=== PATIENT | male | born 1950 | race Hispanic/Latino ===

== ENCOUNTER 2017-04-26 18:46 | Emergency (ER) | payer MEDICARE ==
[~2017-04-26 18:46] MED LIST: ENAL5TAB PO; METO-408 PO
[2017-04-26 19:40] LABS: BASOPHILS % (AUTO) 0.6 % (0.0-5.0); EOSINOPHILS % (AUTO) 0.6 % (0.0-8.0); HEMATOCRIT 44.5 % (42-54); LYMPHOCYTES % (AUTO) 13.7 % (21.0-51.0); MEAN CORPUSCULAR HEMOGLOBIN 29.2 pg (27.0-33.0); MEAN CORPUSCULAR HGB CONC 33.9 g/dL (32.0-36.0); MEAN CORPUSCULAR VOLUME 86.3 fL (79-99); MONOCYTES % (AUTO) 4.7 % (3.0-13.0); NEUTROPHILS % (AUTO) 80.4 % (40.0-77.0); PLATELET COUNT (AUTO) 180 K/uL (130-400); RED BLOOD CELL COUNT(AUTO) 5.16 MIL/uL (4.50-6.20); RED CELL DISTRIBUTION WIDTH 13.7 % (11.0-15.5); WHITE BLOOD COUNT (AUTO) 9.6 K/uL (4.8-10.8)
[2017-04-26 19:47] LABS: CREATININE 1.1 mg/dL (0.5-1.5); POTASSIUM 3.6 mmol/L (3.5-5.1)
[2017-04-26 19:51] LABS: BILIRUBIN,TOTAL 0.9 mg/dL (0.2-1.0)
[2017-04-26] MEDS ORDERED: ONDANSETRON HCL 4 MG/2 ML VIAL ONE (19:53)
[2017-04-26] MEDS ORDERED: MORPHINE SULFATE 2 MG/ML 1ML SYG ONE (19:53)
[2017-04-26 20:15] LABS: APPEARANCE,URINE Turbid (CLEAR); BILIRUBIN,URINE Negative (NEGATIVE); COLOR,URINE Orange (YELLOW); GLUCOSE, URINE (UA) TRACE mg/dL (NEGATIVE); KETONES,URINE 15 mg/dL (NEGATIVE); LEUKOCYTE ESTERASE ,URINE Small (NEGATIVE); NITRATE,URINE Negative (NEGATIVE); OCCULT BLOOD,URINE Large (NEGATIVE); PH,URINE 5.5 (5.0-8.0); PROTEIN,URINE POS 2+ (NEGATIVE)
[2017-04-26 20:22] LABS: BACTERIA,URINE Few /HPF (None Seen); MUCUS,URINE Moderate LPF (None Seen); RBC,URINE Full Field /HPF (0-1); SQUAMOUS EPITHELIAL CELL,UR 0-2 /LPF (0-2)
[2017-04-26] MEDS ORDERED: KETOROLAC TROMETHAMINE 30MG/ML ONE (20:42)
[2017-04-26] MEDS ORDERED: SODIUM CHLORIDE 0.9% 1000ML 1,000 ML IV ONE (20:42)
== END 2017-04-26 22:26 | disposition home or self-care (01) ==
LOC: EDH 18:46
DX: N23 Unspecified renal colic (principal); I10 Essential (primary) hypertension; I25.10 Atherosclerotic heart disease of native coronary artery without angina pectoris; Z95.1 Presence of aortocoronary bypass graft; Z98.890 Other specified postprocedural states; Z87.891 Personal history of nicotine dependence
CPT/HCPCS: 36415; 74176; 80053; 81001; 85025; 96361; 96374; 96375; 99285; J1885; J2405; J7030

== ENCOUNTER → 2017-05-13 | Outpatient (CLI) | payer MEDICARE | END | disposition home or self-care (01) | LOC: RAH 07:49 | PROVIDERS: ATTEND Internal Medicine | DX: N20.0 Calculus of kidney (principal); N28.1 Cyst of kidney, acquired; I70.0 Atherosclerosis of aorta; R16.0 Hepatomegaly, not elsewhere classified; Z90.49 Acquired absence of other specified parts of digestive tract | CPT/HCPCS: 76700 ==

== ENCOUNTER 2018-01-05 13:52 | Emergency (ER) | payer MEDICARE ==
[2018-01-05] MEDS ORDERED: OCTYL 2-CYANOACRYLATE 1 EACH TP ONE (14:12)
[2018-01-05] MEDS ORDERED: LIDOCAINE HCL MPF 1% 5ML VIAL ONE (14:13)
[2018-01-05] MEDS ORDERED: TETANUS/DIPHTHERIA TOXOID [ADULT] 0.5 ML VIAL IM ONE (14:56)
== END 2018-01-05 15:15 | disposition home or self-care (01) ==
LOC: EDH 13:52
DX: S01.81XA Laceration without foreign body of other part of head, initial encounter (principal); I10 Essential (primary) hypertension; I25.10 Atherosclerotic heart disease of native coronary artery without angina pectoris; Z90.49 Acquired absence of other specified parts of digestive tract; Z72.0 Tobacco use; W18.39XA Other fall on same level, initial encounter; Y93.89 Activity, other specified; Y92.89 Other specified places as the place of occurrence of the external cause; Y99.8 Other external cause status
CPT/HCPCS: 12053; 90471; 90714; 99285; J3490

== ENCOUNTER 2018-02-24 23:59 | Inpatient (IN) | payer MEDICARE ==
[~2018-02-24] VITALS: Ht 165.1 cm; Wt 73.8 kg
[2018-02-25 00:52] LABS: BASOPHILS % (AUTO) 0.4 % (0.0-5.0); EOSINOPHILS % (AUTO) 0.6 % (0.0-8.0); HEMATOCRIT 43.4 % (42-54); LYMPHOCYTES % (AUTO) 12.8 % (21.0-51.0); MEAN CORPUSCULAR HEMOGLOBIN 29.4 pg (27.0-33.0); MEAN CORPUSCULAR HGB CONC 33.8 g/dL (32.0-36.0); MONOCYTES % (AUTO) 6.8 % (3.0-13.0); NEUTROPHILS % (AUTO) 79.4 % (40.0-77.0); PLATELET COUNT (AUTO) 142 K/uL (130-400); RED BLOOD CELL COUNT(AUTO) 4.99 MIL/uL (4.50-6.20); RED CELL DISTRIBUTION WIDTH 13.9 % (11.0-15.5)
[2018-02-25 01:00] LABS: APPEARANCE,URINE Clear (CLEAR); BILIRUBIN,URINE Negative (NEGATIVE); COLOR,URINE Yellow (YELLOW); GLUCOSE, URINE (UA) Negative (NEGATIVE); KETONES,URINE Trace mg/dL (NEGATIVE); LEUKOCYTE ESTERASE ,URINE Negative (NEGATIVE); NITRATE,URINE Negative (NEGATIVE); OCCULT BLOOD,URINE Negative (NEGATIVE); PH,URINE 6.5 (5.0-8.0); PROTEIN,URINE Negative (NEGATIVE)
[2018-02-25 01:02] LABS: CREATININE 1.4 mg/dL (0.5-1.5); POTASSIUM 3.6 mmol/L (3.5-5.1)
[2018-02-25 01:06] LABS: ALBUMIN 3.9 g/dL (3.5-5.0); TOTAL PROTEIN, SERUM 7.4 g/dL (6.0-8.3)
[2018-02-25] MEDS ORDERED: MORPHINE SULFATE 4 MG/1ML SYG ONE (01:23)
[2018-02-25] MEDS ORDERED: ONDANSETRON HCL 4 MG/2 ML VIAL ONE (01:23)
[2018-02-25] MEDS ORDERED: SODIUM CHLORIDE 0.9% 500ML 500 ML IV ONE (01:24)
[2018-02-25] MEDS ORDERED: KETOROLAC TROMETHAMINE 30MG/ML ONE (02:09)
[2018-02-25] MEDS ORDERED: ONDANSETRON HCL MDV 20ML 2 MG/ML VIAL IVP PRN (03:45)
[2018-02-25] MEDS ORDERED: MORPHINE SULFATE 4 MG/1ML SYG IVP PRN (03:45)
[2018-02-25] MEDS ORDERED: DICL50TA9 PO (07:33)
[2018-02-25] MEDS ORDERED: ROSU20TA30 PO (07:33)
[2018-02-25] MEDS ORDERED: METO25TA6 PO (07:33)
[2018-02-25] MEDS ORDERED: MELO-106 PO (07:33)
[2018-02-25] MEDS ORDERED: BACL5TAB PO (07:33)
[2018-02-25] MEDS ORDERED: 1/2 NORMAL SALINE 1,000 ML IV ONE (07:49)
[2018-02-25 11:56] VITALS: BP 131/75
[2018-02-25 16:00] VITALS: BP 139/71
[2018-02-25] MEDS ORDERED: BACLOFEN 10 MG TABLET PO PRN (16:30)
[2018-02-25 19:00] VITALS: BP 142/81
[2018-02-25] MEDS ORDERED: MAGNESIUM CITRATE 296 ML SOLUTION PO SCH (19:30)
[2018-02-25] MEDS: ATORVASTATIN CALCIUM 40 MG TABLET PO SCH (20:23)
[2018-02-25] MEDS: METOPROLOL TARTRATE 25 MG TAB PO SCH (20:23)
[2018-02-25] MEDS: 1/2 NORMAL SALINE 1,000 ML IV SCH ×2 (20:24→23:37)
[2018-02-25] MEDS: DICLOFENAC SODIUM 50 MG PO SCH (20:25)
[2018-02-26] VITALS (14 sets, daily range): BP systolic 93–147; BP diastolic 54–80
[2018-02-26] MEDS ORDERED: IOHEXOL-350 75 ML VIAL IV ONE (08:27)
[2018-02-26] MEDS: DICLOFENAC SODIUM 50 MG PO SCH ×2 (09:00→21:00)
[2018-02-26] MEDS: MELOXICAM 7.5 MG TABLET PO SCH (10:04)
[2018-02-26] MEDS: METOPROLOL TARTRATE 25 MG TAB PO SCH ×2 (10:04→21:57)
[2018-02-26] MEDS: ATORVASTATIN CALCIUM 40 MG TABLET PO SCH (21:57)
[2018-02-27] MEDS: 1/2 NORMAL SALINE 1,000 ML IV SCH ×2 (00:23→15:45)
[2018-02-27 04:00] VITALS: BP 133/81
[2018-02-27 08:33] VITALS: BP 150/77
[2018-02-27] MEDS: DICLOFENAC SODIUM 50 MG PO SCH (09:00)
[2018-02-27] MEDS: METOPROLOL TARTRATE 25 MG TAB PO SCH (09:42)
[2018-02-27] MEDS: MELOXICAM 7.5 MG TABLET PO SCH (09:42)
[2018-02-27 13:20] VITALS: BP 146/77
[2018-02-27 17:48] VITALS: BP 153/81
[2018-03-03] MEDS ORDERED: DICL50TA9 PO (14:08)
[2018-03-03] MEDS ORDERED: LISI-617 PO (14:08)
[2018-03-03] MEDS ORDERED: TAMS0.4C32 PO (14:08)
[2018-03-03] MEDS ORDERED: MELO-108 PO (14:08)
[2018-03-03] MEDS ORDERED: BACL10TA PO (14:08)
== END 2018-02-27 19:45 | disposition home or self-care (01) | DRG 694 ==
LOC: EDH 23:59 → UNDOADMOB 02-25 02:16 → OBSVTOIN 02-25 02:16 → EDHIP 02-25 02:16 → 3DH 02-25 11:35 → EDHIP 02-25 11:35 → OBSVTOIN 02-26 10:14 → INTOOBSV 02-26 10:14
PROVIDERS: ADMIT Internal Medicine; ATTEND Internal Medicine
DX: N13.2 Hydronephrosis with renal and ureteral calculous obstruction (principal); I10 Essential (primary) hypertension; I25.10 Atherosclerotic heart disease of native coronary artery without angina pectoris; Z95.1 Presence of aortocoronary bypass graft; Z90.49 Acquired absence of other specified parts of digestive tract
CPT/HCPCS: 36415; 74176; 74400; 80053; 81003; 84153; 85025; J1885; J2270; J2405; J7040; Q9967

== ENCOUNTER 2018-03-18 05:30 | Observation (INO) | payer MEDICARE ==
[2018-03-17] MEDS: CEFAZOLIN SODIUM 1 GM VIAL IVP SCH (05:30)
[2018-03-17 10:15] LABS: APPEARANCE,URINE Clear (CLEAR); BILIRUBIN,URINE Negative (NEGATIVE); COLOR,URINE Yellow (YELLOW); GLUCOSE, URINE (UA) Negative (NEGATIVE); KETONES,URINE Negative (NEGATIVE); LEUKOCYTE ESTERASE ,URINE Moderate (NEGATIVE); NITRATE,URINE Negative (NEGATIVE); OCCULT BLOOD,URINE Large (NEGATIVE); PH,URINE 6.5 (5.0-8.0); PROTEIN,URINE POS 1+ (NEGATIVE)
[2018-03-17 10:16] LABS: HEMATOCRIT 44.2 % (42-54); MEAN CORPUSCULAR HEMOGLOBIN 28.5 pg (27.0-33.0); MEAN CORPUSCULAR VOLUME 86.3 fL (79-99); PLATELET COUNT (AUTO) 148 K/uL (130-400); RED BLOOD CELL COUNT(AUTO) 5.12 MIL/uL (4.50-6.20); RED CELL DISTRIBUTION WIDTH 13.9 % (11.0-15.5); WHITE BLOOD COUNT (AUTO) 6.4 K/uL (4.8-10.8)
[2018-03-17 10:24] LABS: BACTERIA,URINE Rare /HPF (None Seen); MUCUS,URINE Few LPF (None Seen); RBC,URINE >100 /HPF (0-1); SQUAMOUS EPITHELIAL CELL,UR Few /HPF (0-2)
[2018-03-17 10:28] LABS: POTASSIUM 4.4 mmol/L (3.5-5.1)
[2018-03-17 10:30] VITALS: BP 111/67
[2018-03-17 10:37] LABS: INR 0.98 (0.85-1.15); PARTIAL THROMBOPLASTIN TIME 29.9 SEC (26.3-35.5); PROTHROMBIN TIME 10.3 SEC (9.6-11.6)
[2018-03-17] MEDS: LACTATED RINGERS 1000ML 1,000 ML IV SCH (21:15)
[2018-03-18] VITALS (26 sets, daily range): BP systolic 93–157; BP diastolic 53–90
[~2018-03-18] VITALS: Ht 165.1 cm; Wt 73.0 kg
[~2018-03-18 05:30] MED LIST changes: -ENAL5TAB PO; +LISI-617 PO; -METO-408 PO; +METOPROLOL PO; +ROSU20TA30 PO; +TAMS0.4C32 PO
[2018-03-18] MEDS: LACTATED RINGERS 1000ML 1,000 ML IV SCH ×3 (06:09→08:20)
[2018-03-18] MEDS ORDERED: IOHEXOL-350 50ML VIAL IV ONE (06:47)
[2018-03-18] MEDS ORDERED: LIDOCAINE PF 2% 5ML ABBOJECT ONE ×2 (06:51→07:21)
[2018-03-18] MEDS ORDERED: DEXAMETHASONE SOD PHOSPHATE 10MG/ML 1ML VIAL ONE (06:51)
[2018-03-18] MEDS ORDERED: GLYCOPYRROLATE 1 MG/5 ML SYRINGE ONE (06:52)
[2018-03-18] MEDS ORDERED: MIDAZOLAM HCL 1 MG/ML 2ML VIAL ONE (06:52)
[2018-03-18] MEDS ORDERED: PROPOFOL 10 MG/ML 20ML VIAL IV ONE (06:52)
[2018-03-18] MEDS ORDERED: FENTANYL CITRATE PF 50 MCG/1 ML 2ML VIAL ONE (06:52)
[2018-03-18] MEDS ORDERED: NEOSTIGMINE 5MG/5ML SYR IV ONE (06:52)
[2018-03-18] MEDS ORDERED: ONDANSETRON HCL 4 MG/2 ML VIAL ONE (06:52)
[2018-03-18] MEDS ORDERED: ROCURONIUM 10MG/1ML SYR 10 MG/ML ML ONE (06:52)
[2018-03-18] MEDS: CEFAZOLIN SODIUM 1 GM VIAL IVP SCH ×3 (07:00→21:56)
[2018-03-18] MEDS ORDERED: EPHEDRINE SULFATE 50 MG/ML AMPULE ONE (07:21)
[2018-03-18] MEDS ORDERED: SODIUM CHLORIDE 0.9% 10 ML VIAL ONE (07:21)
[2018-03-18] MEDS ORDERED: ESMOLOL HCL 10 MG/ML 10 ML VIAL ONE (08:40)
[2018-03-18] MEDS ORDERED: ACETAMINOPHEN 325 MG TAB PO PRN (10:00)
[2018-03-18] MEDS ORDERED: ONDANSETRON HCL 4 MG/2 ML VIAL IVP PRN (10:00)
[2018-03-18] MEDS ORDERED: ACETAMINOPHEN-CODEINE 300/30MG TAB PO PRN (10:00)
[2018-03-18] MEDS ORDERED: MEPERIDINE-PF 75 MG/ML SYG IM PRN (10:00)
[2018-03-18] MEDS: DEXTROSE 5 %-0.45 % NACL 1,000 ML IV SCH (15:07)
[2018-03-18] MEDS: METOPROLOL TARTRATE 25 MG TAB PO SCH (20:51)
[2018-03-19] MEDS: DEXTROSE 5 %-0.45 % NACL 1,000 ML IV SCH ×2 (02:08→10:07)
[2018-03-19 03:49] VITALS: BP 107/56
[2018-03-19 04:31] LABS: BASOPHILS % (AUTO) 0.1 % (0.0-5.0); HEMATOCRIT 38.5 % (42-54); LYMPHOCYTES % (AUTO) 9.1 % (21.0-51.0); MEAN CORPUSCULAR HEMOGLOBIN 28.2 pg (27.0-33.0); MEAN CORPUSCULAR HGB CONC 32.8 g/dL (32.0-36.0); MEAN CORPUSCULAR VOLUME 86.2 fL (79-99); MONOCYTES % (AUTO) 4.8 % (3.0-13.0); PLATELET COUNT (AUTO) 137 K/uL (130-400); RED BLOOD CELL COUNT(AUTO) 4.46 MIL/uL (4.50-6.20); RED CELL DISTRIBUTION WIDTH 13.8 % (11.0-15.5); WHITE BLOOD COUNT (AUTO) 14.8 K/uL (4.8-10.8)
[2018-03-19 04:39] LABS: CREATININE 1.1 mg/dL (0.5-1.5)
[2018-03-19] MEDS: CEFAZOLIN SODIUM 1 GM VIAL IVP SCH ×3 (05:57→22:45)
[2018-03-19 07:30] VITALS: BP_SYST 114; BP_SYST 156; BP_DIAS 61; BP_DIAS 65
[2018-03-19] MEDS: LACTATED RINGERS 1000ML 1,000 ML IV SCH ×2 (10:06→23:15)
[2018-03-19] MEDS: METOPROLOL TARTRATE 25 MG TAB PO SCH ×2 (10:11→20:54)
[2018-03-19] MEDS: LISINOPRIL 5 MG TABLET PO SCH (10:11)
[2018-03-19] MEDS: TAMSULOSIN HCL 0.4 MG CAP.ER.24H PO SCH (10:11)
[2018-03-19 11:00] VITALS: BP 111/60
[2018-03-19] MEDS: ZOSYN 3.375GM+NS 50ML 50 ML IV SCH ×2 (14:26→22:45)
[2018-03-19 16:00] VITALS: BP 109/57
[2018-03-19] MEDS ORDERED: Rosuvastatin Calcium 20 MG PO SCH (21:00)
[2018-03-19 21:11] VITALS: BP 116/60
[2018-03-20 00:24] VITALS: BP 124/68
[2018-03-20] MEDS: DEXTROSE 5 %-0.45 % NACL 1,000 ML IV SCH (02:00)
[2018-03-20 04:10] VITALS: BP 116/55
[2018-03-20 04:48] LABS: HEMATOCRIT 38.3 % (42-54); MEAN CORPUSCULAR HEMOGLOBIN 29.6 pg (27.0-33.0); MEAN CORPUSCULAR HGB CONC 34.2 g/dL (32.0-36.0); MEAN CORPUSCULAR VOLUME 86.5 fL (79-99); NUCLEATED RED BLOOD CELLS 0.1 % (0.0-0.19); PLATELET COUNT (AUTO) 128 K/uL (130-400); RED BLOOD CELL COUNT(AUTO) 4.43 MIL/uL (4.50-6.20); RED CELL DISTRIBUTION WIDTH 13.8 % (11.0-15.5); WHITE BLOOD COUNT (AUTO) 8.4 K/uL (4.8-10.8)
[2018-03-20 05:08] LABS: BAND NEUTROPHILS % (MANUAL) 1 % (0-2); LYMPHOCYTES % (MANUAL) 29 % (22-44); MAN.DIFF COMMENT-IMPRESSION MANUAL DIFFERENTIAL; MONOCYTES % (MANUAL) 7 % (2-9); SEGMENTED NEUTROPHILS % 63 % (40-70)
[2018-03-20 05:10] LABS: PLATELET MORPHOLOGY COMMENT ADEQUATE
[2018-03-20] MEDS: CEFAZOLIN SODIUM 1 GM VIAL IVP SCH (06:38)
[2018-03-20] MEDS: ZOSYN 3.375GM+NS 50ML 50 ML IV SCH (06:38)
[2018-03-20 08:00] VITALS: BP 132/73
[2018-03-20] MEDS: LACTATED RINGERS 1000ML 1,000 ML IV SCH (09:15)
[2018-03-20] MEDS: LISINOPRIL 5 MG TABLET PO SCH (10:42)
[2018-03-20] MEDS: TAMSULOSIN HCL 0.4 MG CAP.ER.24H PO SCH (10:42)
[2018-03-20] MEDS: METOPROLOL TARTRATE 25 MG TAB PO SCH (10:43)
[2018-03-20 11:00] VITALS: BP 139/71
== END 2018-03-20 11:30 | disposition home or self-care (01) ==
LOC: DAH 05:30 → DAHIP 05:31 → DAH 05:31 → 4CH 09:32
PROVIDERS: ADMIT Urology; ATTEND Urology
DX: N20.2 Calculus of kidney with calculus of ureter (principal); D72.829 Elevated white blood cell count, unspecified; E78.5 Hyperlipidemia, unspecified; I25.10 Atherosclerotic heart disease of native coronary artery without angina pectoris; I10 Essential (primary) hypertension; N40.0 Benign prostatic hyperplasia without lower urinary tract symptoms; F41.9 Anxiety disorder, unspecified; Z96.0 Presence of urogenital implants; Z79.01 Long term (current) use of anticoagulants
CPT/HCPCS: 36415 ×3; 52356; 71046; 74420; 80048 ×2; 81001; 82360; 85025 ×2; 85027; 85610; 85730; 87088; 88300; 93005; 96365; 96366 ×2; 96375; 96376 ×3; A4218 ×6; A4344; A4358; A4600; A4649 ×2; A4930; C1751; C1758 ×2; C1769 ×2; C1894; C2617; G0378 ×54; J0690 ×7; J1100; J2001 ×2; J2250; J2405; J2543 ×3; J2704; J2710; J3010; J3490 ×3; J7042 ×2; J7120 ×2; Q9967

== ENCOUNTER → 2019-08-04 | Outpatient (CLI) | payer MEDICARE ==
[~2019-08-04] MED LIST changes: -ROSU20TA30 PO; +ROSU20TA31 PO
== END | disposition home or self-care (01) ==
LOC: RAH 12:01
PROVIDERS: ATTEND Internal Medicine
DX: N13.2 Hydronephrosis with renal and ureteral calculous obstruction (principal); K59.00 Constipation, unspecified; K42.9 Umbilical hernia without obstruction or gangrene; K57.30 Diverticulosis of large intestine without perforation or abscess without bleeding; Z90.49 Acquired absence of other specified parts of digestive tract
CPT/HCPCS: 74176

== ENCOUNTER → 2019-10-19 | Outpatient (CLI) | payer MEDICARE | END | disposition home or self-care (01) | LOC: SHCH 08:19 | PROVIDERS: ATTEND Internal Medicine Cardiovascular Disease | DX: I25.10 Atherosclerotic heart disease of native coronary artery without angina pectoris (principal); I10 Essential (primary) hypertension | CPT/HCPCS: 93306; 93356 ==

== ENCOUNTER → 2021-06-26 | Outpatient (CLI) | payer MEDICARE ==
[~2021-06-26] VITALS: Ht 165.1 cm; Wt 72.1 kg
[~2021-06-26] MED LIST changes: -LISI-617 PO; +LISI5TAB21 PO; +REGADENOSON 0.4 MG/5 ML PF SYG IVP SCH
== END | disposition home or self-care (01) ==
LOC: SHCH 07:32
PROVIDERS: ATTEND Internal Medicine Cardiovascular Disease
DX: I25.5 Ischemic cardiomyopathy (principal); E78.5 Hyperlipidemia, unspecified; E11.9 Type 2 diabetes mellitus without complications; I10 Essential (primary) hypertension; R94.39 Abnormal result of other cardiovascular function study; Z72.0 Tobacco use; Z95.1 Presence of aortocoronary bypass graft
CPT/HCPCS: 78452; 93017; 96374; A9500 ×2; J2785

== ENCOUNTER 2021-07-28 07:18 | Day surgery (SDC) | payer MEDICARE ==
[2021-07-26 11:28] LABS: APPEARANCE,URINE Clear (CLEAR); BILIRUBIN,URINE Negative (NEGATIVE); COLOR,URINE Yellow (YELLOW); GLUCOSE, URINE (UA) TRACE mg/dL (NEGATIVE); KETONES,URINE Negative (NEGATIVE); LEUKOCYTE ESTERASE ,URINE Negative (NEGATIVE); NITRATE,URINE Negative (NEGATIVE); OCCULT BLOOD,URINE Negative (NEGATIVE); PROTEIN,URINE Negative (NEGATIVE)
[2021-07-26 11:53] LABS: BASOPHILS % (AUTO) 0.7 % (0.0-5.0); EOSINOPHILS % (AUTO) 2.4 % (0.0-8.0); HEMATOCRIT 44.6 % (42-54); LYMPHOCYTES % (AUTO) 26.3 % (21.0-51.0); MEAN CORPUSCULAR HEMOGLOBIN 29.6 pg (27.0-33.0); MEAN CORPUSCULAR HGB CONC 33.4 g/dL (32.0-36.0); MEAN CORPUSCULAR VOLUME 88.5 fL (79-99); MONOCYTES % (AUTO) 6.6 % (3.0-13.0); NEUTROPHILS % (AUTO) 63.6 % (40.0-77.0); PLATELET COUNT (AUTO) 129 K/uL (130-400); RED BLOOD CELL COUNT(AUTO) 5.04 MIL/uL (4.50-6.20); RED CELL DISTRIBUTION WIDTH 13.7 % (11.0-15.5); WHITE BLOOD COUNT (AUTO) 5.4 K/uL (4.8-10.8)
[2021-07-26 12:01] LABS: CREATININE 0.9 mg/dL (0.5-1.5); POTASSIUM 4.2 mmol/L (3.5-5.1)
[2021-07-26 12:09] LABS: BACTERIA,URINE Rare /HPF (None Seen); RBC,URINE 0-1 /HPF (0-1); SQUAMOUS EPITHELIAL CELL,UR Few /HPF (0-2); WBC,URINE 0-1 /HPF (0-1)
[2021-07-26 12:11] LABS: B-TYPE NATRIURETIC PEPTIDE 26 pg/mL (0-100); INR 1.04 (0.85-1.15); PROTHROMBIN TIME 11.3 SEC (9.6-11.6)
[2021-07-26 12:12] LABS: PARTIAL THROMBOPLASTIN TIME 28.8 SEC (26.3-35.5)
[2021-07-27 09:45] VITALS: BP 137/66
[~2021-07-28] VITALS: Ht 160 cm; Wt 72.8 kg
[2021-07-28] VITALS (8 sets, daily range): BP systolic 124–141; BP diastolic 63–76
[~2021-07-28 07:18] MED LIST changes: +0.9% NACL 500ML IV.SOLN 500 ML IV SCH; +CLOP75TA32 PO; +FENTANYL CITRATE PF 50 MCG/1 ML 2ML VIAL ONE; +GLIM4TAB36 PO; +IOHEXOL 350 MG/ML 100ML INFUS..BTL IV ONE; +IOHEXOL-350 50ML VIAL IV ONE; +LIDOCAINE HCL 400MG/20ML VIAL ONE; +METO-408 PO; -METOPROLOL PO; +MIDAZOLAM HCL 1 MG/ML 2ML VIAL ONE; +NITROGLYCERIN 50MG VIAL ONE; -REGADENOSON 0.4 MG/5 ML PF SYG IVP SCH
[2021-07-28] MEDS ORDERED: 0.9%NACL 1000ML 1,000 ML IV ONE (08:21)
[2021-07-28] MEDS ORDERED: AEC81 PO (08:36)
[2021-07-28] MEDS ORDERED: FENTANYL CITRATE PF 50 MCG/1 ML 2ML VIAL ONE (09:00)
[2021-07-28] MEDS ORDERED: MIDAZOLAM HCL 1 MG/ML 2ML VIAL ONE (09:00)
[2021-07-28] MEDS: 0.9%NACL 1000ML 1,000 ML IV SCH ×2 (10:45→14:25)
== END 2021-07-28 14:26 | disposition home or self-care (01) ==
LOC: DAH 07:18
PROVIDERS: ATTEND Internal Medicine Cardiovascular Disease
DX: I25.118 Atherosclerotic heart disease of native coronary artery with other forms of angina pectoris (principal); I25.5 Ischemic cardiomyopathy; I25.718 Atherosclerosis of autologous vein coronary artery bypass graft(s) with other forms of angina pectoris; I11.0 Hypertensive heart disease with heart failure; I50.22 Chronic systolic (congestive) heart failure; E11.9 Type 2 diabetes mellitus without complications; E78.2 Mixed hyperlipidemia; Z79.82 Long term (current) use of aspirin; Z79.84 Long term (current) use of oral hypoglycemic drugs; Z79.899 Other long term (current) drug therapy; Z98.890 Other specified postprocedural states; Z79.01 Long term (current) use of anticoagulants
CPT/HCPCS: 36415; 71045; 80048; 81001; 83880; 85025; 85610; 85730; 93005; 93459; A4215; A4216; A4221; A4222; A4223 ×3; A4606; A4663; C1760; C1894 ×2; J1644; J2250; J3010; J3490 ×2; J7030 ×2; Q9965 ×2; Q9967 ×2; 99156; 99157

== ENCOUNTER → 2021-10-02 | Outpatient (CLI) | payer MEDICARE ==
[~2021-10-02] MED LIST changes: -0.9% NACL 500ML IV.SOLN 500 ML IV SCH; +AEC81 PO; -FENTANYL CITRATE PF 50 MCG/1 ML 2ML VIAL ONE; -IOHEXOL 350 MG/ML 100ML INFUS..BTL IV ONE; -IOHEXOL-350 50ML VIAL IV ONE; -LIDOCAINE HCL 400MG/20ML VIAL ONE; -MIDAZOLAM HCL 1 MG/ML 2ML VIAL ONE; -NITROGLYCERIN 50MG VIAL ONE
[2021-10-02 12:39] LABS: POTASSIUM 3.9 mmol/L (3.5-5.1)
== END | disposition home or self-care (01) ==
LOC: LAB 09:29
PROVIDERS: ATTEND Nurse Practitioner Acute Care
DX: I25.5 Ischemic cardiomyopathy (principal)
CPT/HCPCS: 36415; 80048

== ENCOUNTER → 2021-12-11 | Outpatient (CLI) | payer MEDICARE | END | disposition home or self-care (01) | LOC: SHCH 09:04 | PROVIDERS: ATTEND Internal Medicine Cardiovascular Disease | DX: I25.5 Ischemic cardiomyopathy (principal); I25.10 Atherosclerotic heart disease of native coronary artery without angina pectoris; I10 Essential (primary) hypertension; E11.9 Type 2 diabetes mellitus without complications; E78.5 Hyperlipidemia, unspecified; Z95.1 Presence of aortocoronary bypass graft | CPT/HCPCS: 93306 ==

== ENCOUNTER → 2022-08-13 | Outpatient (CLI) | payer MEDICARE ==
[2022-08-13 12:21] LABS: BASOPHILS % (AUTO) 0.5 % (0.0-5.0); EOSINOPHILS % (AUTO) 2.1 % (0.0-8.0); HEMATOCRIT 45.6 % (42-54); MEAN CORPUSCULAR HEMOGLOBIN 29.1 pg (27.0-33.0); MEAN CORPUSCULAR HGB CONC 32.2 g/dL (32.0-36.0); MEAN CORPUSCULAR VOLUME 90.1 fL (79-99); MONOCYTES % (AUTO) 6.3 % (3.0-13.0); NEUTROPHILS % (AUTO) 65.4 % (40.0-77.0); PLATELET COUNT (AUTO) 134 K/uL (130-400); RED BLOOD CELL COUNT(AUTO) 5.06 MIL/uL (4.50-6.20); RED CELL DISTRIBUTION WIDTH 13.5 % (11.0-15.5); WHITE BLOOD COUNT (AUTO) 5.9 K/uL (4.8-10.8)
[2022-08-13 12:44] LABS: ALBUMIN 3.9 g/dL (3.5-5.0); POTASSIUM 4.1 mmol/L (3.5-5.1)
== END | disposition home or self-care (01) ==
LOC: LAB 08:10
PROVIDERS: ATTEND Nurse Practitioner Acute Care
DX: I10 Essential (primary) hypertension (principal); E78.5 Hyperlipidemia, unspecified
CPT/HCPCS: 36415; 80053; 80061; 85025

== ENCOUNTER → 2024-08-12 | Outpatient (CLI) | payer OTHER ==
[~2024-08-12] MED LIST changes: -AEC81 PO; +CARV12.511 PO; +CARV6.25 PO; -CLOP75TA32 PO; +DIPH-1150 PO; +ISOS60TA77 PO; +LISI10TA24 PO; -LISI5TAB21 PO; -METO-408 PO; -ROSU20TA31 PO; +ROSU20TA98 PO; +SACU1TAB PO
--- NOTE | 2024-08-12 09:33 | HMCIMG ---
Exam Type: CHEST 2VWS Clinical Information: COPD Comparison: None Findings: There is status post median sternotomy. The lungs are clear of infiltrates. The heart is normal in size. Impression: Clear lungs.
== END | disposition home or self-care (01) ==
LOC: RAH 08:47
PROVIDERS: ATTEND Internal Medicine
DX: J44.9 Chronic obstructive pulmonary disease, unspecified (principal)
CPT/HCPCS: 71046